=== PATIENT | male | born 1980 | race Caucasian/White ===

== ENCOUNTER 2020-01-22 15:08 | Inpatient (IN) | payer OTHER ==
[~2020-01-22] VITALS: Ht 172.7 cm; Wt 90.0 kg
[2020-01-22] MEDS ORDERED: naloxone 2mg/2ml inj IV ONE (15:45)
[2020-01-22] MEDS ORDERED: normal saline 1000ML IV soln IVB ONE (15:45)
[2020-01-22] MEDS ORDERED: CefTRIAXone 2gm/D5W 50ml 50 ML IV ONE (15:50)
[2020-01-22] MEDS ORDERED: normal saline 1000ML IV soln IV ONE (15:50)
[2020-01-22] MEDS ORDERED: vancomycin/NS 1 GM ADD-VANTAGE 250 ML IV ONE (15:50)
[2020-01-22] MEDS ORDERED: levetiracetam inj 1,000 MG in normal saline 100ml IV soln 90 ML IV SCH ×2 (16:19→20:00)
[2020-01-22 16:25] LABS: PARTIAL THROMBOPLASTIN TIME 28 SECONDS (22-32)
[2020-01-22 16:29] LABS: ALANINE AMINOTRANSFERASE 116 U/L (12-78); ALBUMIN 4.3 G/DL (3.4-5.0); ALBUMIN/GLOBULIN RATIO 0.8 (1.1-1.5); ALKALINE PHOSPHATASE 92 IU/L (46-116); ANION GAP 11 (8-16); BILIRUBIN,TOTAL 0.9 MG/DL (0.1-1.0); BLOOD UREA NITROGEN 18 MG/DL (7-18); BUN/CREATININE RATIO 16.8 (5.4-32.0); CHLORIDE 94 MMOL/L (99-107); CREATININE 1.07 MG/DL (0.60-1.10); GLUCOSE 121 MG/DL (70-104); SODIUM 135 MMOL/L (135-145); TOTAL CARBON DIOXIDE 29.9 MMOL/L (24-32); TOTAL PROTEIN 9.5 G/DL (6.4-8.2); eGFR 76 ML/MIN
[2020-01-22 16:32] LABS: ETHANOL < 0.010 GM/DL (0.0-0.010); MAGNESIUM 2.1 MG/DL (1.5-2.4); POTASSIUM 4.8 MMOL/L (3.5-5.1); TROPONIN I 0.05 NG/ML (0.0-0.05)
[2020-01-22 16:33] LABS: CLARITY,URINE SLIGHTLY CLOUDY (Clear); GLUCOSE, URINE 250 mg/dl (Neg); KETONES,URINE 15 mg/dl (Neg); LEUKOCYTE ESTERASE ,URINE NEGATIVE (Neg); NITRITES, URINE NEGATIVE (Neg); OCCULT BLOOD,URINE LARGE (Neg); PROTEIN,URINE >=300 mg/dl (Neg); UROBILINOGEN,URINE 0.2 E.U/dL (0.2-1.0)
[2020-01-22 16:33] LABS: ASPARTATE AMINO TRANSFERASE 190 U/L (10-37)
[2020-01-22 16:34] LABS: COLOR,URINE AMBER (Yellow); UA COLLECTION TYPE FOLEY CATH
[2020-01-22 16:39] LABS: SQUAMOUS EPITHELIAL CELL,UR FEW /LPF (FEW); TRANSITIONAL EPI CELLS,URINE MODERATE /HPF; URINE AMPHETAMINE SCREEN NEGATIVE (Neg); URINE BARBITUATE SCREEN NEGATIVE (Neg); URINE BENZODIAZEPINES SCREEN NEGATIVE (Neg); URINE CANNABINOID SCREEN POSITIVE (Neg); URINE COCAINE SCREEN NEGATIVE (Neg); URINE METHADONE SCREEN NEGATIVE (Neg); URINE OPIATE SCREEN NEGATIVE (Neg); URINE PHENCYCLIDINE SCREEN NEGATIVE (Neg)
[2020-01-22 16:40] LABS: HYALINE CASTS 0-3 /LPF (NEGATIVE)
[2020-01-22 16:41] LABS: CELLULAR CAST 0-4 /LPF (NEGATIVE); MUCUS STRANDS FEW /LPF (Neg)
[2020-01-22 16:42] LABS: BACTERIA,URINE NONE SEEN /HPF (Neg); RBC,URINE 0-2 /HPF (0-2); WBC,URINE 0-4 /HPF (0-4)
[2020-01-22 16:43] LABS: AMORPHOUS URATES 1+
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
[2020-01-22 17:10] LABS: ABG BASE EXCESS 0.6 mmol/L (-2.0-3.0); ABG HCO3 23.9 mmol/L (22.0-26.0); ABG OXYGEN SATURATION 90.9 % (95-98); ABG PCO2 (T) 34.5 mmHg (35.0-45.0); ABG PH (T) 7.458 (7.350-7.450); ABG PO2 (T) 58.8 mmHg (83-108); ALLEN'S TEST POSITIVE; FCOHb 0.8 % (0.5-1.5); FLOW 15 L/min; FMetHb 0.2 % (0.3-1.12); TOTAL HEMOGLOBIN 15.6 G/dl (14.0-17.9)
[2020-01-22 17:19] LABS: CREATINE KINASE 1145 U/L (39-308)
[2020-01-22 17:26] LABS: BASOPHILS % (AUTO) 0.2 % (0-1); EOSINOPHILS % (AUTO) 0 % (0-6); HEMATOCRIT 43.9 % (42.0-52.0); HEMOGLOBIN 15.2 g/dl (14.0-17.9); LYMPHOCYTES # (AUTO) 0.3 X10'3 (1.1-4.8); LYMPHOCYTES % (AUTO) 2.4 % (21-51); MEAN CORPUSCULAR HEMOGLOBIN 34.9 PG (27.0-31.0); MEAN CORPUSCULAR HGB CONC 34.7 g/dL (33.0-36.5); MEAN CORPUSCULAR VOLUME 100.6 FL (78-98); MEAN PLATELET VOLUME 7.9 FL (7.4-10.4); MONOCYTES # (AUTO) 1.5 X10'3 (0-0.9); MONOCYTES % (AUTO) 13.8 % (2-12); NEUTROPHILS % (AUTO) 83.6 % (42-75); PLATELET COUNT 202 X10'3 (140-440); RED BLOOD COUNT 4.37 X10'6 (4.70-6.10); RED CELL DISTRIBUTION WIDTH 13.7 % (11.5-14.5); WHITE BLOOD COUNT 10.8 X10'3 (4.5-11.0)
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
[2020-01-22] MEDS ORDERED: cloNIDine 0.1 MG/24 HOUR patch (7 day patch) TD ONE (18:05)
[2020-01-22] MEDS ORDERED: LORazepam 2 mg/ml vial IV ONE (18:05)
[2020-01-22] MEDS ORDERED: acetaminophen 650mg rectal suppository RC ONE (18:10)
[2020-01-22] MEDS ORDERED: levoFLOXACIN-Levaquin 750MG/D5 150 ML IV STA (18:30)
[2020-01-22] MEDS ORDERED: magnesium 2GM in 50ml NS 50 ML IV PRN (18:35)
[2020-01-22] MEDS ORDERED: magnesium 4gm in 100ml NS 100 ML IV PRN (18:35)
[2020-01-22] MEDS ORDERED: sodium phosphate inj. 15 MMOL in dextrose 5%-water 250 ML IV PRN (18:35)
[2020-01-22] MEDS ORDERED: iohexol 350MG/ML 100ml bottle IV ONE (18:35)
[2020-01-22] MEDS ORDERED: potassium Cl 20 mEq SR tablet PO PRN ×2 (18:35)
[2020-01-22] MEDS ORDERED: ondansetron/PF 4mg/2ml inj IV PRN (18:35)
[2020-01-22] MEDS ORDERED: acetaminophen 650mg rectal suppository RC PRN (18:35)
[2020-01-22] MEDS ORDERED: morphine 4 MG/ML inj SYRINge IV PRN (18:35)
[2020-01-22] MEDS ORDERED: magnesium Cl slow-release 64mg tablet PO PRN (18:35)
[2020-01-22] MEDS ORDERED: sodium phosphate inj. 30 MMOL in dextrose 5%-water 250 ML IV PRN (18:35)
[2020-01-22] MEDS ORDERED: Neutra Phos packet PO PRN (18:35)
[2020-01-22] MEDS ORDERED: morphine 2 MG/ML inj. syringe IV PRN (18:35)
[2020-01-22] MEDS ORDERED: LIDOcaine 2% 10ml TOPICAL JELLY (Urojet) TP ONE (18:35)
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
[2020-01-22] MEDS ORDERED: succinylcholine 20mg/ml inj IV ONE (18:45)
[2020-01-22] MEDS ORDERED: MIDAZolam 5mg/ml 2ml vial IV ONE (18:45)
[2020-01-22] MEDS ORDERED: etomidate 2mg/ml inj. IV ONE (18:45)
[2020-01-22] MEDS ORDERED: midazolam 100mg in NS 100ml 100 ML IV ONE (18:45)
[2020-01-22] MEDS ORDERED: midazolam 2 mg/2 ml injection ONE (18:51)
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
[2020-01-22 19:09] LABS: D-DIMER 9.68 MG/L FEU (0-0.50)
--- NOTE | 2020-01-22 19:09 | NUR ---
@1900 Attmepting intubation. Airway appears edemetous acoording to Dr.. Moore. Size 8 tube was attempted, however would not advance. Size 7 was placed at 25 cm to mouth. bi-lateral breath sounds. 10mg versed 20mg etomidate 100mg succ given during intubation
[2020-01-22 19:13] LABS: AMYLASE 144 U/L (25-115); LIPASE 1216 U/L (73-393)
[2020-01-22 19:14] LABS: FERRITIN 831 NG/ML (26-388)
--- NOTE | 2020-01-22 19:14 | NUR ---
VERSED DRIP AND LEVAQUIN PULLED AND HANDED OFF TO STAFF THRU ANTE ROOM
[2020-01-22] MEDS ORDERED: FENTANYL-0.9 % NACL/PF 100 ML IV PRN ×2 (19:17→19:19)
[2020-01-22] MEDS ORDERED: dexamethasone sod phosphate 10mg/ml inj IV STA ×2 (19:17→19:33)
[2020-01-22 19:30] LABS: LACTATE DEHYDROGENASE 1100 U/L (85-227)
[2020-01-22 19:30] LABS: ABG BASE EXCESS -5.3 mmol/L (-2.0-3.0); ABG HCO3 22.6 mmol/L (22.0-26.0); ABG OXYGEN SATURATION 98.7 % (95-98); ABG PCO2 (T) 53.5 mmHg (35.0-45.0); ABG PH (T) 7.245 (7.350-7.450); ABG PO2 (T) 180.7 mmHg (83-108); ALLEN'S TEST POSITIVE; FCOHb 0.3 % (0.5-1.5); FMetHb 0.3 % (0.3-1.12); FO2Hb 98.1 % (94-100); PATIENT TEMPERATURE 37.3; PEEP 5 cm H2O; RESPIRATORY RATE 18 b/min; TIDAL VOLUME 450 mL; TOTAL HEMOGLOBIN 15.5 G/dl (14.0-17.9)
--- NOTE | 2020-01-22 19:33 | NUR ---
SHON ESCOBAR HANDED OFF TO STAFF THRU ANTE ROOM
[2020-01-22] MEDS ORDERED: piperacillin/tazo 3.375gm/50ml 50 ML IV ONE ×2 (19:35→19:40)
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
[2020-01-22] MEDS ORDERED: heparin, porcine 5000 units/ml vial SQ SCH (20:00)
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
[2020-01-22 23:10] VITALS: BP 133/70
[2020-01-23] MEDS ORDERED: pantoprazole 40 MG vial IV SCH (08:00)
[2020-01-23] MEDS ORDERED: levoFLOXACIN-Levaquin 500mg/D5 100 ML IV SCH (08:00)
[2020-01-24] MEDS ORDERED: bisacodyl 10mg suppository rectal RC PRN (18:35)
== END 2020-01-22 23:10 | disposition short-term general hospital (02) | DRG 871 ==
LOC: ER 15:08 → ED HOLD 18:31 → CANBEDREQ 20:42
PROVIDERS: ADMIT Internal Medicine Critical Care Medicine; ATTEND Internal Medicine Critical Care Medicine
PROC: 5A1935Z Respiratory Ventilation, Less than 24 Consecutive Hours (ICD-10-PCS; principal; 2020-01-22)
PROC: 0BH17EZ Insertion of Endotracheal Airway into Trachea, Via Natural or Artificial Opening (ICD-10-PCS; 2020-01-22)
PROC: B32T1ZZ Computerized Tomography (CT Scan) of Left Pulmonary Artery using Low Osmolar Contrast (ICD-10-PCS; 2020-01-22)
PROC: B3201ZZ Computerized Tomography (CT Scan) of Thoracic Aorta using Low Osmolar Contrast (ICD-10-PCS; 2020-01-22)
PROC: B32S1ZZ Computerized Tomography (CT Scan) of Right Pulmonary Artery using Low Osmolar Contrast (ICD-10-PCS; 2020-01-22)
PROC: B4201ZZ Computerized Tomography (CT Scan) of Abdominal Aorta using Low Osmolar Contrast (ICD-10-PCS; 2020-01-22)
DX: A41.9 Sepsis, unspecified organism (principal); I61.9 Nontraumatic intracerebral hemorrhage, unspecified; J96.01 Acute respiratory failure with hypoxia; S02.40FA Zygomatic fracture, left side, initial encounter for closed fracture; S02.40DA Maxillary fracture, left side, initial encounter for closed fracture; X58.XXXA Exposure to other specified factors, initial encounter; I10 Essential (primary) hypertension; D72.810 Lymphocytopenia; Z03.818 Encounter for observation for suspected exposure to other biological agents ruled out; Y93.89 Activity, other specified; Y92.89 Other specified places as the place of occurrence of the external cause; Y99.8 Other external cause status
CPT/HCPCS: 31500; 36415; 36600; 70450; 70486; 70490; 71045; 71275; 74177; 80053; 80305; 80320; 81001; 82140; 82150; 82550; 82728; 82803; 83605; 83615; 83690; 83735; 83874; 84145; 84443; 84466; 84484; 85018; 85025; 85379; 85610; 85730; 87040; 87635; 93005; 94760; 99291; 99292; G0378; J0330; J0696; J1100; J1953; J1956; J2060; J2250; J2310; J3370; J7030; Q9967